=== PATIENT | male | born 1970 | race Caucasian/White ===

== ENCOUNTER 2022-06-16 16:21 | Emergency (ER) | payer BC ==
[~2022-06-16] VITALS: Ht 182.9 cm; Wt 129.3 kg
--- NOTE | 2022-06-16 16:56 | NUR ---
52 years old male presents to er via wheelchair c/o fingers pain start on home antibiotic no improvement per patient. denies fever chills.
--- NOTE | 2022-06-16 18:09 | NUR ---
patient stable d/c home with instructions after care reviewed understood left er via wheelchair no pain.
[2022-06-16 18:12] VITALS: BP 130/80
== END 2022-06-16 18:13 | disposition home or self-care (01) ==
LOC: ER 16:21
DX: L03.012 Cellulitis of left finger (principal); G80.9 Cerebral palsy, unspecified; E11.9 Type 2 diabetes mellitus without complications
CPT/HCPCS: A4663